=== PATIENT | male | born 1990 ===

== ENCOUNTER 2020-04-08 12:36 | Emergency (ER) | payer SELFPAY ==
[2020-04-08 12:40] VITALS: BP 135/90; PULSE 98; RESP 14; TEMP 36.2; O2SAT 99
--- NOTE | 2020-04-08 12:47 | ED.GENADUL_ITS ---
Discharge Plan Disposition Patient Disposition: HOME Condition: Stable Discharge Details Clinical Impression: Avulsion of skin of left hand Primary Care Provider: Rula,Local ED Provider: Hunter Thomas Home Meds and New Rx's Prescriptions: Continued Primatene Mist 0.125 mg/actuation Hfa Aerosol Inhaler 1 puff INHALATION PRN PRNRF: 0 Discharge Instructions Instructions: Skin Adhesive Care (ED) Additional Instructions: if you have redness spreading down the finger or severe pain return to the emergency department Medical Decision Making 29 yo male was at work cutting wood with a saw when it hit a nail kicking back and cut his left infex finger. Denies falling or hitting head. Has a 1cm skin avulsion of distal left index finger, intact sensation and normal cap refill and range of motion. Wound is superficial so doubt bone involvement. Will apply skin adhesive, up date tetanus and d/c. Differential Diagnosis Differential Diagnosis: laceration, abrasion HPI General Mode of arrival: ambulatory . Date/Time Provider Initiated Documentation: 04/08/20 12:44 . Limitations to Documentation: no limitations . Information obtained by: patient . History of Present Illness 29 year old M presents to the emergency department with the chief complaint of left index finger laceration, described as mild, No relieving factors improve symptom(s), No exacerbating factors reported . Patient did receive the following treatments prior to arrival, none Related Data Home Medications Medication Instructions Recorded Confirmed Primatene Mist 1 puff INHALATION PRN PRN 04/08/20 04/08/20 Allergies Allergy/AdvReac Type Severity Reaction Status Date / Time Opioids - Morphine Analogues Allergy Mild Nausea Unverified 04/08/20 12:44 General Stated Complaint: Laceration NAYANA: 4 Review of Systems All systems reviewed & are unremarkable except as noted in HPI and below Constitutional Constitutional: Denies chills, Denies fever(s) and Denies weakness Cardiovascular Cardiovascular: Denies chest pain and Denies dyspnea Respiratory Respiratory: Denies cough and Denies dyspnea Gastrointestinal Gastrointestinal: Denies abdominal pain, Denies nausea and Denies vomiting Musculoskeletal Musculoskeletal: Denies joint swelling Integumentary/Breasts Skin/Breast: Denies rash Neurologic Neurologic: Denies weakness PFSH Social History Smoking/Tobacco Use Status: Never Smoking risk assessment performed?: Yes Alcohol Intake: current Alcohol Intake frequency: 0-2 drinks per day Alcohol type: beer Drug use: Daily Substance use type: marijuana Do you feel safe at home: Yes Do you feel safe in your relationship?: Yes Exam Const General: no acute distress Orientation: alert HENMT Head: normal to inspection Ears: external ears normal Mouth: moist mucous membranes Eyes General: appearance normal, both eyes and all related structures Neck Neck: normal visual inspection Resp Effort & Inspection: normal respiratory effort and able to speak in complete sentences Cardio Rate: regular rate Skin General skin exam: no rashes or lesions noted Neuro General: patient alert and patient oriented x3 Extrem General: full ROM and capillary refill normal Psych Mental Status: mental status grossly normal Course Vital Signs Vital signs: Vital Signs Temperature 36.2 C L 04/08/20 12:40 Pulse 98 H 04/08/20 12:40 Respiratory Rate 14 04/08/20 12:40 Blood Pressure 135/90 04/08/20 12:40 Pulse Oximetry 99 04/08/20 12:40 Temperature 36.2 C L 04/08/20 12:40 Temperature Source Temporal Artery Scan 04/08/20 12:40 Pulse 98 H 04/08/20 12:40 Respiratory Rate 14 04/08/20 12:40 Blood Pressure 135/90 04/08/20 12:40 Blood Pressure Position Sitting 04/08/20 12:40 Pulse Oximetry 99 04/08/20 12:40 Oxygen Delivery Method Room Air 04/08/20 12:40 Oxygen Flow Rate 0 04/08/20 12:40 Pain Level 5 04/08/20 12:45 Procedures Laceration Laceration 1: Site: upper extremity Side (If applicable): left Size (cm): 1 Description: linear Depth: simple, single layer Pre-repair: wound explored and irrigated extensively Skin layer closed with: other (skin adhesive)
== END 2020-04-08 13:13 | disposition home or self-care (01) ==
PROVIDERS: Emergency Provider Emergency Medicine
DX: S61.202A Unspecified open wound of right middle finger without damage to nail, initial encounter (principal); W31.2XXA Contact with powered woodworking and forming machines, initial encounter
CPT/HCPCS: 12001; 90471